=== PATIENT | female | born 1930 | race Caucasian/White ===

== ENCOUNTER → 2017-06-13 | Outpatient (CLI) | payer MEDICARE | END | disposition home or self-care (01) | LOC: CFH 10:28 | PROVIDERS: ATTEND Family Medicine | DX: J44.9 Chronic obstructive pulmonary disease, unspecified (principal); D71 Functional disorders of polymorphonuclear neutrophils; R94.8 Abnormal results of function studies of other organs and systems; R79.9 Abnormal finding of blood chemistry, unspecified; R94.138 Abnormal results of other function studies of peripheral nervous system; K21.9 Gastro-esophageal reflux disease without esophagitis; I10 Essential (primary) hypertension; J30.9 Allergic rhinitis, unspecified; I49.9 Cardiac arrhythmia, unspecified; M12.9 Arthropathy, unspecified; N32.81 Overactive bladder; L30.9 Dermatitis, unspecified; R42 Dizziness and giddiness; F51.01 Primary insomnia; R53.83 Other fatigue; M79.1 Myalgia; G62.9 Polyneuropathy, unspecified; Z79.891 Long term (current) use of opiate analgesic | CPT/HCPCS: 71020 ==